=== PATIENT | male | born 1960 | race Caucasian/White ===

== ENCOUNTER 2020-07-15 13:20 | Emergency (ER) | payer OTHER, MEDICAID, SELFPAY ==
[2020-07-15 13:30] VITALS: BP 151/76; PULSE 76; RESP 16; TEMP 36.9; O2SAT 98; BMI 25.0
[2020-07-15 15:23] VITALS: BP 169/78; PULSE 55; TEMP 37.1; O2SAT 95
--- NOTE | 2020-07-15 16:52 | ED.GENADULT ---
HPI - General Adult General Chief complaint: Ear Stated complaint: Ears went nutty after trip to [place] Time Seen by Provider: 07/15/20 16:32 Source: patient Mode of arrival: Ambulatory Limitations: no limitations History of Present Illness HPI narrative: Patient is a 60-year-old male who stated that he spent a period of time upon [facility] and as he was coming down had fullness in pain and both of his ears with right being greater than left. He also describes nasal congestion. Has not tried anything for his symptoms prior to arrival. Related Data Allergies Allergy/AdvReac Type Severity Reaction Status Date / Time blueberries Allergy Severe Uncoded 05/30/17 11:53 Review of Systems Constitutional Constitutional: Denies headache(s) ENT Ears, Nose, Mouth, and Throat: Denies headache(s) Comments: Bilateral ear pain Integumentary/Breasts Skin/Breast: Denies rash Neurologic Neurologic: Denies headache(s) Hematologic/Lymphatic On Anticoagulants: No Allergic/Immunologic Allergic/Immunologic: Reports system reviewed and no additional complaints, except as documented Patient History alcohol intake frequency: 0-2 drinks per day Substance Use Type: marijuana Exam Initial Vital Signs Initial Vital Signs: Vital Signs Temperature 98.5 F 07/15/20 13:30 Pulse Rate 76 07/15/20 13:30 Respiratory Rate 16 07/15/20 13:30 Blood Pressure 151/76 H 07/15/20 13:30 Pulse Oximetry 98 07/15/20 13:30 Const General: cooperative and comfortable Limitations: mental status not altered HENOH Head: normal to inspection and normocephalic Ears: other (Bilateral EACs impacted by cerumen) Nose: external nose normal Mouth: oral mucosae normal Eyes General: appearance normal, both eyes and all related structures Skin Lesions: no lesions Rashes: no rashes Neuro General: patient alert and patient awake Extrem General: capillary refill normal Psych Appearance: grossly normal and well kempt Course Vital Signs Vital signs: Vital Signs - 8 hr 07/15/20 15:23 Temperature 98.8 F Pulse Rate 55 L Blood Pressure 169/78 H Pulse Oximetry 95 Medical Decision Making MDM Narrative Medical decision making narrative: Patient's bilateral tympanic membranes are obscured by cerumen impaction. There to far posterior for a safe removal here in the emergency department. His symptoms started after he was descending for mouth to 2. I suspect it is Ear block related to out to change fever did discuss the use of decongestants. Patient is safe for discharge home. He was given return precautions. Expressed understanding agreement. Discharge Plan Departure Patient Disposition: Home Clinical Impression: Blocked ear, Bilateral impacted cerumen Instructions: Cerumen Impaction Activity Restrictions/Additional Instructions: I recommend that you start taking decongestants such as Afrin. This medication is probably the fastest way to open your ears. You can also start taking a antihistamine such as Claritin or Benadryl. All of these can be purchased [id number]. If this is not working you then can try Nasonex or Flonase. Contact your primary provider for follow-up. Return to the emergency department for any new or worsening symptoms Referrals: Ree Starr PA-C [Primary Care Provider] -
== END 2020-07-15 17:04 | disposition home or self-care (01) ==
PROVIDERS: Emergency Provider Emergency Medicine; PCP Physician Assistant Medical
DX: H61.23 Impacted cerumen, bilateral (principal)
CPT/HCPCS: 99281

== ENCOUNTER 2021-06-24 13:29 | Emergency (ER) | payer OTHER, MEDICAID, SELFPAY ==
[2021-06-24 14:14] VITALS: BP 145/94; PULSE 99; RESP 18; TEMP 36.8; O2SAT 97; BMI 24.3
--- NOTE | 2021-06-24 15:59 | ED_ITS ---
HPI - Skin/Abscess/Foreign Bdy <Girish Husain PA-C - Last Filed: 06/24/21 16:13> General Chief complaint: Skin/Abscess/Foreign Body Stated complaint: skin rash, all over but started from rash on back Time Seen by Provider: 06/24/21 15:41 History of Present Illness HPI narrative: This is a 61-year-old male presents to emergency department due to a rash for the month. States that it initially began to the left which spread his lesions to and top of the head over last 2 days. Denies any visual changes, tearing of his eye, or any other eye symptoms. States that he felt a burning sensation to his forehead prior to the lesions appearing. States that over the last month he has been given at oral course of prednisone and Keflex which have minimally helped relieve the itchiness. States he received office childhood immunizations but does not recall if he had chickenpox as a child. Did not has received the shingles vaccine. Denies any fevers, chest pain, or any other concerning signs or symptoms. Related Data Previous Rx's Medication Instructions Recorded valacyclovir 1 gram tablet 1,000 mg PO TID 7 Days #21 tab 06/24/21 valacyclovir 1 gram tablet 1,000 mg PO TID 7 Days #21 tab 06/24/21 Allergies Allergy/AdvReac Type Severity Reaction Status Date / Time blueberries Allergy Severe Uncoded 05/30/17 11:53 Review of Systems <ALVERTO Angulo Last Filed: 06/24/21 16:13> Review of Systems Narrative: See HPI Patient History <ALVERTO Angulo Last Filed: 06/24/21 16:13> alcohol intake frequency: 0-2 drinks per day Substance Use Type: marijuana Exam <ALVERTO Angulo Last Filed: 06/24/21 16:13> Narrative Exam Narrative: GENERAL: 61 year old patient appears stated age. Well-developed patient, in mild distress. HEAD: Atraumatic. Normocephalic. EYES: Pupils equal round and reactive. Extraocular motions intact. No scleral icterus. No injection or drainage. ENT: Nose without bleeding, purulent drainage. Throat without erythema, tonsillar hypertrophy or exudate. Airway patent. NECK: Trachea midline. Non tender CARDIOVASCULAR: Regular rate and rhythm without murmurs, gallops, or rubs. RESPIRATORY: Clear to auscultation. Breath sounds equal bilaterally. No wheezes, rales, or rhonchi. GASTROINTESTINAL: Abdomen soft, non-tender, nondistended. EXTREMITIES: No edema or joint tenderness. BACK: Nontender without deformity or crepitance. No flank tenderness. NEURO: AOx3. SKIN: Erythematous and scaling rash to the bilateral upper back. Not significantly warm to the touch. Lesions to the left forehead and upper eyelid that do not cross the midline along with a lesion to the left eyelid. No evidence of any lesions to the conjunctiva or eye itself. Initial Vital Signs Initial Vital Signs: Vital Signs Temperature 98.3 F 06/24/21 14:14 Pulse Rate 99 H 06/24/21 14:14 Respiratory Rate 18 06/24/21 14:14 Blood Pressure 145/94 H 06/24/21 14:14 Pulse Oximetry 97 06/24/21 14:14 <Gabriel Valle DO - Last Filed: 06/26/21 07:54> Initial Vital Signs Initial Vital Signs: Vital Signs Temperature 98.3 F 06/24/21 14:14 Pulse Rate 99 H 06/24/21 14:14 Respiratory Rate 18 06/24/21 14:14 Blood Pressure 145/94 H 06/24/21 14:14 Pulse Oximetry 97 06/24/21 14:14 Course <Girish Husain PA-C - Last Filed: 06/24/21 16:13> Vital Signs Vital signs: Vital Signs - 8 hr 06/24/21 14:14 Temperature 98.3 F Pulse Rate 99 H Respiratory Rate 18 Blood Pressure 145/94 H Pulse Oximetry 97 <DO Adeel Beck Last Filed: 06/26/21 07:54> Vital Signs Vital signs: Vital Signs - 8 hr 06/24/21 14:14 Temperature 98.3 F Pulse Rate 99 H Respiratory Rate 18 Blood Pressure 145/94 H Pulse Oximetry 97 MDM - Skin/Abscess/Foreign Bdy <ALVERTO Angulo Last Filed: 06/24/21 16:13> MDM Narrative Medical decision making narrative: This is is a 61-year-old male presenting to the emergency department due to rash, possible shingles. Patient has already been treated for bacterial and allergic etiology with the prednisone and Keflex previously prescribed. E xamined the patient w/ my attending physician, Dr. Valle, who agreed with plan for antivirals to treat for possible shinges. Patient denied any ocular symptoms but ED precautions given emergency department if he notes any lesions affecting his eye. Discharge Plan Departure Patient Disposition: Home Clinical Impression: Shingles Instructions: DI for Shingles Activity Restrictions/Additional Instructions: Thank you for coming to the [facility] Emergency Department. We will treat you for suspected shingles infection. Please take the antiviral as prescribed to help with your symptoms. You may use Benadryl as needed to help with the itchiness as well as the creams have been prescribed. Please return directly to the emergency department if he develops any visual changes or lesions affecting your eye ball itself. I hope you feel better soon. Prescriptions: New valacyclovir 1 gram tablet 1,000 mg PO TID 7 Days Qty: 21 0RF valacyclovir 1 gram tablet 1,000 mg PO TID 7 Days Qty: 21 0RF Referrals: Burt Bay MD [Primary Care Provider] - <Gabriel Valle DO - Last Filed: 06/26/21 07:54> Cosign ED Attending Cosignature Attestation: I was immediately available in the department for consultation. This documentation has been reviewed and I agree with assessment and plan. Supervised by Gabriel Valle DO
[2021-06-24 16:23] VITALS: BP 154/92; PULSE 85; RESP 16; O2SAT 96
== END 2021-06-24 16:24 | disposition home or self-care (01) ==
PROVIDERS: Emergency Provider Physician Assistant Medical; PCP Internal Medicine
DX: B02.9 Zoster without complications (principal)
CPT/HCPCS: 99281

== ENCOUNTER → 2021-09-30 09:19 | Outpatient (CLI) | payer OTHER, SELFPAY ==
--- NOTE | 2021-09-30 09:24 | DI.RAD.S_ITS ---
PROCEDURE: XR KNEE RT 1TO2V INDICATIONS: BILATERAL KNEE PAIN TECHNIQUE: Two view(s) of the knee acquired. COMPARISON: [facility], , KNEE 3V RIGHT, 08/31/2016, 15:15. FINDINGS: Bones: Status post right knee arthroplasty with components in expected position. No significant periprosthetic lucency. No acute fractures. Soft tissues: Trace joint effusion. Small periarticular dystrophic calcifications, possibly related to postsurgical changes. IMPRESSION: 1. Expected appearance post right knee arthroplasty without significant periprosthetic lucency to suggest loosening. Dictated by: Joana Rai M.D. on 09/30/2021 at 12:18 Approved by: Joana Rai M.D. on 09/30/2021 at 12:21
--- NOTE | 2021-09-30 09:24 | DI.RAD.S_ITS ---
PROCEDURE: XR KNEE LT 1TO2V INDICATIONS: BILATERAL KNEE PAIN TECHNIQUE: Two view(s) of the knee acquired. COMPARISON: [facility], , KNEE 3V LEFT, 08/31/2016, 15:15. [facility], , KNEE 3V RIGHT, 08/31/2016, 15:15. FINDINGS: Bones: Patient is status post knee joint arthroplasty. Hardware components are in expected positions. No periprosthetic lucency. Visualized bony structures are intact. Soft tissues: Very small joint effusion. No unusual soft tissue calcifications. IMPRESSION: 1. Expected appearance of the joint post left knee arthroplasty with very small joint effusion present. Dictated by: Joana Rai M.D. on 09/30/2021 at 12:17 Approved by: Joana Rai M.D. on 09/30/2021 at 12:18
== END ==
PROVIDERS: PCP Family Medicine; Referring Provider Internal Medicine Cardiovascular Disease; Visit Provider Internal Medicine Cardiovascular Disease
DX: M25.561 Pain in right knee (principal); M25.562 Pain in left knee; Z96.653 Presence of artificial knee joint, bilateral
CPT/HCPCS: 73560

== ENCOUNTER 2022-01-13 08:39 | Emergency (ER) | payer OTHER, MEDICAID, SELFPAY ==
[2022-01-13 09:12] VITALS: BP 145/69; PULSE 82; RESP 16; TEMP 36.7; O2SAT 95; BMI 23.6
--- NOTE | 2022-01-13 09:19 | DI.US.S_ITS ---
PROCEDURE: US PERIPH VENOUS LOW EXTREM LT INDICATIONS: LLE pain/ swelling TECHNIQUE: Real-time imaging, as well as color and pulse Doppler interrogation, were performed of the lower extremity deep veins from the inguinal ligament to the popliteal fossa. COMPARISON: None. FINDINGS: The common femoral, femoral and popliteal veins are normally compressible, and free of intraluminal thrombus. Color and pulse Doppler demonstrate normal phasic intraluminal flow. There is normal augmentation response to distal compression maneuver. Subcutaneous edema present. IMPRESSION: 1. No DVT in the left lower extremity. Dictated by: Joana Rai M.D. on 01/13/2022 at 11:45 Approved by: Joana Rai M.D. on 01/13/2022 at 11:46
[2022-01-13 09:36] LABS: Add Manual Diff / Slide Review YES; Hematocrit 51.9 % (41-53); Mean Corpuscular HGB Conc 34.8 % (30-36); Mean Corpuscular Hemoglobin 34.4 PG (26-34); Mean Corpuscular Volume 99.1 fL (80-100); Platelet Count 83 X10^3/uL (150-400); Red Blood Cell Count 5.24 X10^6/uL (4.5-5.9); Red Cell Distribution Width 13.2 % (11.6-14.8); White Blood Cell Count 6.1 X10^3/uL (4.5-11.0)
[2022-01-13 09:44] LABS: Alanine Aminotransferase 43 IU/L (<50); Albumin 3.6 g/dL (3.5-5.0); Albumin Globulin Ratio 1.1 (1.0-2.8); Alkaline Phosphatase 98 U/L (38-126); Aspartate Aminotransferase 65 IU/L (17-59); BUN Creatinine Ratio 5.1 (6-22); Bilirubin Total 0.5 mg/dL (0.2-1.3); Blood Urea Nitrogen 3 mg/dL (9-20); Calcium 8.5 mg/dL (8.4-10.2); Carbon Dioxide 22 mmol/L (22-32); Chloride 104 mmol/L (98-107); Estimated Glomerular Filt Rate > 60 mL/min (>60); Globulin 3.2 g/dL (1.7-4.1); Glucose 95 mg/dL (70-100); HEMOLYSIS 15 (0-50); Potassium 3.8 mmol/L (3.4-5.1); Sodium 137 mmol/L (137-145); Total Protein 6.8 g/dL (6.3-8.2)
[2022-01-13 10:06] LABS: Neutrophils Absolute Manual 4087 /uL (3000-5900); RBC Morphology Normal Morphology; Total Cells Counted 100
--- NOTE | 2022-01-13 12:10 | ED_ITS ---
HPI - Extremity Problem General Chief complaint: Extremity Problem,Nontraumatic Stated complaint: LT leg is swelling t-4 Time Seen by Provider: 01/13/22 11:52 Source: patient Mode of arrival: Ambulatory History of Present Illness HPI Narrative: 61-year-old male who is here for evaluation of swelling and redness to his left lower extremity. No trauma. No chest pain. No shortness of breath. No fevers. He states that he has recently been treated for athlete's foot. He also states he has something on the bottom of his foot. Family was concerned that maybe this was a skin infection. Related Data Previous Rx's Medication Instructions Recorded carbamide peroxide 6.5 % ear drops 3 drp EAR-RIGHT BID #15 mL 01/13/22 (Ear Wax Removal Drops) Allergies Allergy/AdvReac Type Severity Reaction Status Date / Time blueberries Allergy Severe Uncoded 05/30/17 11:53 Review of Systems Constitutional Constitutional: Reports system reviewed and no additional complaints, except as documented Musculoskeletal Musculoskeletal: Reports system reviewed and no additional complaints, except as documented Integumentary/Breasts Skin/Breast: Reports system reviewed and no additional complaints, except as documented Neurologic Neurologic: Reports system reviewed and no additional complaints, except as documented Hematologic/Lymphatic On Anticoagulants: No Patient History Social History Smoking Status: Current every day smoker Smoking Status: Current every day smoker alcohol intake frequency: 0-2 drinks per day Substance Use Type: marijuana Exam Initial Vital Signs Initial Vital Signs: Vital Signs Temperature 98.0 F 01/13/22 09:12 Pulse Rate 82 01/13/22 09:12 Respiratory Rate 16 01/13/22 09:12 Blood Pressure 145/69 H 01/13/22 09:12 Pulse Oximetry 95 01/13/22 09:12 Oxygen Delivery Method 01/13/22 09:12 HENLA Head: normal to inspection and normocephalic Cardio Pulses: dorsalis pedis present on the left Skin Other: Patient with petechiae on the dorsum of his left foot and also petechiae and purpura on his left loving. He does have a plantar wart on the bottom of his foot. Extrem Other: Nonpitting edema left lower extremity. Course Orders Ordered: ED Orders 01/13/22 09:19 US periph venous low extrem lt Stat 01/13/22 09:23 CMP [Comprehensive Metabolic Panel] Stat Complete Blood Count AUTO DIFF Stat Vital Signs Vital signs: Vital Signs - 8 hr 01/13/22 09:12 Temperature 98.0 F Pulse Rate 82 Respiratory Rate 16 Blood Pressure 145/69 H Pulse Oximetry 95 Oxygen Delivery Method Room Air MDM - Extremity (Nontraumatic) Lab Data Result diagrams: 01/13/22 09:23 01/13/22 09:23 Labs: Lab Results 01/13/22 01/13/22 Range/Units 09:23 09:23 WBC 6.1 (4.5-11.0) X10^3/uL RBC 5.24 (4.5-5.9) X10^6/uL Hgb 18.0 H (13.5-17.5) g/dL Hct 51.9 (41-53) % MCV 99.1 (80-100) fL MCH 34.4 H (26-34) PG MCHC 34.8 (30-36) % RDW 13.2 (11.6-14.8) % Plt Count 83 L (150-400) X10^3/uL Neut % (Auto) Not Reportable Lymph % (Auto) Not Reportable [place] % (Auto) Not Reportable Eos % (Auto) Not Reportable Baso % (Auto) Not Reportable Lymph # (Auto) Not Reportable [place] # (Auto) Not Reportable Baso # (Auto) Not Reportable Total Counted 100 Seg Neutrophils % 66.0 (38-70) % Band Neutrophils % 1.0 L (3-7) % Lymphocytes % (Manual) 28.0 (25-45) % Monocytes % (Manual) 4.0 (2-11) % Eosinophils % (Manual) 1.0 L (2-4) % Neutrophils # (Manual) 4087 (8968-7879) /uL RBC Morphology Normal morphology Sodium 137 (137-145) mmol/L Potassium 3.8 (3.4-5.1) mmol/L Chloride 104 (98-107) mmol/L Carbon Dioxide 22 (22-32) mmol/L BUN 3 L (9-20) mg/dL Creatinine 0.59 L (0.66-1.25) mg/dL Estimated GFR > 60 (>60) mL/min BUN/Creatinine Ratio 5.1 L (6-22) Glucose 95 (70-100) mg/dL Calcium 8.5 (8.4-10.2) mg/dL Total Bilirubin 0.5 (0.2-1.3) mg/dL AST 65 H (17-59) IU/L ALT 43 (<50) IU/L Alkaline Phosphatase 98 (38-126) U/L Total Protein 6.8 (6.3-8.2) g/dL Albumin 3.6 (3.5-5.0) g/dL Globulin 3.2 (1.7-4.1) g/dL Albumin/Globulin Ratio 1.1 (1.0-2.8) Imaging Data US - DVT: Radiologist's Impression: [address] [id number] Ultrasound Report Signed Patient: Wilver Batres MR#: [id number] : 1960 Acct:[id number] Age/Sex: 61 / M Date of Service: 01/13/22 Loc: ED Accession Number: [id number] ?? Procedure: US periph venous low extrem lt Ordering Provider: Kojo Kaiser D.O. PROCEDURE:? US PERIPH VENOUS LOW EXTREM LT ? INDICATIONS:? LLE pain/ swelling ? TECHNIQUE:? Real-time imaging, as well as color and pulse Doppler interrogation, were performed of the lower extremity deep veins from the inguinal ligament to the popliteal fossa.? ? COMPARISON:? None. ? FINDINGS:? The common femoral, femoral and popliteal veins are normally compressible, and free of intraluminal thrombus.? Color and pulse Doppler demonstrate normal phasic intraluminal flow.? There is normal augmentation response to distal compression maneuver. ?Subcutaneous edema present. ? IMPRESSION:? ? 1. No DVT in the left lower extremity.? ? ? Dictated by: Joana Rai M.D. on 01/13/2022 at 11:45 ? ? Approved by: Joana Rai M.D. on 01/13/2022 at 11:46 MDM Narrative Medical decision making narrative: Afebrile. Ultrasounds negative for DVT. He does have petechiae per per on his left lower extremity. He does have thrombocytopenia. He is no other signs of bleeding. No trauma. Kidney function is unremarkable. Did consider ITP/TTP/HUS I did discuss this with the patient. He does have a primary doctor. Informed him that he should contact his primary doctor for follow-up to discuss further workup. Patient does not need admitted to the hospital today. No indication for antibiotics. He expressed understanding and agreement. Discharge Plan Departure Patient Disposition: Home Clinical Impression: Thrombocytopenia, Petechiae, Cerumen impaction Instructions: DI for Cerumen Impaction, DI for Petechiae Activity Restrictions/Additional Instructions: I recommend that you contact your primary doctor's office for follow-up to discuss your low platelet count. Return to the emergency department for any new or worsening symptoms. Prescriptions: New Ear Wax Removal Drops 6.5 % drops 3 drp EAR-RIGHT BID Qty: 15 0RF Referrals: Osmany Frey MD [Primary Care Provider] - Visit Report Forms: Patient Portal/API
== END 2022-01-13 12:26 | disposition home or self-care (01) ==
PROVIDERS: Emergency Provider Emergency Medicine; PCP Family Medicine
DX: D69.6 Thrombocytopenia, unspecified (principal); H61.20 Impacted cerumen, unspecified ear
CPT/HCPCS: 36415; 80053; 85007; 85025; 93971; 99283; 99284

== ENCOUNTER 2023-03-13 19:13 | Emergency (ER) | payer OTHER, MEDICAID, SELFPAY ==
[2023-03-13 19:16] VITALS: BP 116/61; PULSE 84; RESP 18; TEMP 36.4; O2SAT 99; BMI 23.4
--- NOTE | 2023-03-13 19:46 | ED_ITS ---
HPI - Extremity Problem General Chief complaint: Extremity Problem,Nontraumatic Stated complaint: leg swelling Time Seen by Provider: 03/13/23 19:36 Source: patient Mode of arrival: Ambulatory History of Present Illness HPI Narrative: Patient is a 63-year-old male here for evaluation of left lower extremity swelling. He states his symptoms been going on the past couple days. He does feel like both legs are swelling but the left is worse than the right. He does have redness to his upper leg. It does not extend to his scrotum/testicles. No abdominal issues. 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 He reports swelling to both of his knees. No specific trauma. No fevers. Is taking all of his medications as directed. No history of gout. No history of heart failure. He has tried to keep both of his legs elevated without much improvement of symptoms. Related Data Previous Rx's Medication Instructions Recorded carbamide peroxide 6.5 % ear drops 3 drp EAR-RIGHT BID #15 mL 01/13/22 (Ear Wax Removal Drops) cephalexin 500 mg capsule 500 mg PO BID 7 days #14 caps 03/13/23 furosemide 20 mg tablet (Lasix) 20 mg PO DAILY #30 tabs 03/13/23 Allergies Allergy/AdvReac Type Severity Reaction Status Date / Time blueberries Allergy Severe Uncoded 05/30/17 11:53 Review of Systems Review of Systems ROS Unobtainable: All systems reviewed & are unremarkable except as noted in HPI and below Patient History Social History Smoking Status: Current every day smoker Smoking Status: Current every day smoker tobacco type: cigarettes alcohol intake frequency: 0-2 drinks per day Substance Use Type: marijuana Exam Initial Vital Signs Initial Vital Signs: Vital Signs Temperature 97.5 F L 03/13/23 19:16 Pulse Rate 84 03/13/23 19:16 Respiratory Rate 18 03/13/23 19:16 Blood Pressure 116/61 03/13/23 19:16 Pulse Oximetry 99 03/13/23 19:16 Oxygen Delivery Method Room Air 03/13/23 19:16 Const General: cooperative, comfortable and No ill appearing HENMT Head: normal to inspection and normocephalic Resp Effort & Inspection: normal respiratory effort Auscultation: clear to auscultation bilaterally Cardio Rate: regular rate Rhythm: regular rhythm Pulses: dorsalis pedis present bilaterally GI Inspection: normal to inspection and non-distended Palpation: soft, No firm, No guarding and No tender Skin Other: Patient does have redness to the left upper thigh particularly the anterior and medial aspect. No vesicles. No pustules. He also has wounds in various stages of healing in his lower extremities. Neuro General: patient alert, patient awake and patient oriented x3 Extrem Other: Bilateral knees are swollen. Left leg is swollen from just below his knee to his upper thigh. He is able to flex and extend the knee but is somewhat limited because of the swelling in his knees in the ?tightness? that develops when he bends his knee. Course Orders Ordered: ED Orders 03/13/23 19:45 US periph venous low extrem bi Stat 03/13/23 19:55 Complete Blood Count AUTO DIFF Stat Comprehensive Metabolic Panel Stat Lipase Stat NT-proBNP (BNP-Adult 18+) Stat Troponin & CK Cardiac Panel Stat 03/13/23 20:36 EKG-12 Lead Stat Discontinued Medications Furosemide (Furosemide 40 Mg/4 Ml Vial) 40 mg IV NOW ONE Stop: 03/13/23 21:26 Last Admin: 03/13/23 21:34 Dose: 40 mg Documented By: NELLA Vital Signs Vital signs: Vital Signs - 8 hr 03/13/23 19:16 03/13/23 21:47 Temperature 97.5 F L Pulse Rate 84 79 Respiratory Rate 18 20 Blood Pressure 116/61 119/70 Pulse Oximetry 99 97 Oxygen Delivery Method Room Air Room Air MDM - Extremity (Nontraumatic) Lab Data 03/13/23 19:55 03/13/23 19:55 Labs: Lab Results 03/13/23 Range/Units 19:55 WBC 6.7 (4.5-11.0) X10^3/uL RBC 4.07 L (4.5-5.9) X10^6/uL Hgb 14.3 (13.5-17.5) g/dL Hct 41.4 (41-53) % MCV 101.7 H (80-100) fL MCH 35.0 H (26-34) PG MCHC 34.5 (30-36) % RDW 13.5 (11.6-14.8) % Plt Count 74 L (150-400) X10^3/uL Neut % (Auto) Not Reportable Lymph % (Auto) Not Reportable [place] % (Auto) Not Reportable Eos % (Auto) Not Reportable Baso % (Auto) Not Reportable Lymph # (Auto) Not Reportable [place] # (Auto) Not Reportable Baso # (Auto) Not Reportable Total Counted 100 Seg Neutrophils % 57.0 (38-70) % Lymphocytes % (Manual) 33.0 (25-45) % Monocytes % (Manual) 6.0 (2-11) % Eosinophils % (Manual) 3.0 (2-4) % Basophils % (Manual) 1.0 (0-1) % Neutrophils # (Manual) 3819 (6715-0975) /uL RBC Morphology Normal morphology Sodium 127 L (137-145) mmol/L Potassium 3.8 (3.4-5.1) mmol/L Chloride 97 L (98-107) mmol/L Carbon Dioxide 22 (22-32) mmol/L BUN < 2 L (9-20) mg/dL Creatinine 0.45 L (0.66-1.25) mg/dL Estimated GFR > 60 (>60) mL/min BUN/Creatinine Ratio 4.4 L (6-22) Glucose 82 (80-110) mg/dL Calcium 8.0 L (8.4-10.2) mg/dL Total Bilirubin 1.0 (0.2-1.3) mg/dL AST 72 H (17-59) IU/L ALT 28 (<50) IU/L Alkaline Phosphatase 101 (38-126) U/L Total Creatine Kinase 110 (55-170) U/L Troponin I < 0.012 (0.01-0.034) ng/mL NT-Pro-B Natriuret Pep 127 H (<125) pg/mL Total Protein 5.8 L (6.3-8.2) g/dL Albumin 2.6 L (3.5-5.0) g/dL Globulin 3.2 (1.7-4.1) g/dL Albumin/Globulin Ratio 0.8 L (1.0-2.8) Lipase 47 (23-300) U/L Imaging Data US - DVT: Radiologist's Impression: PROCEDURE: US PERIPH VENOUS LOW EXTREM BI INDICATIONS: EDEMA TECHNIQUE: Real-time imaging, as well as color and pulse Doppler interrogation, were performed of the deep veins of both legs from the inguinal ligament to the popliteal fossa, with documentation of the visualized calf veins. COMPARISON: None. FINDINGS: Right: The common femoral, femoral, popliteal, and the visualized calf veins are normally compressible, and free of intraluminal thrombus. Color and pulse Doppler demonstrate normal phasic intravascular flow. There is normal augmentation response to distal compression maneuver. Diffuse soft tissue edema. Left: The common femoral, femoral, popliteal, and the visualized calf veins are normally compressible, and free of intraluminal thrombus. Color and pulse Doppler demonstrate normal phasic intravascular flow. There is normal augmentation response to distal compression maneuver. Diffuse soft tissue edema. IMPRESSION: No findings of deep venous thrombosis in either lower extremity. ECG Data Interpretation: Sinus rhythm Ventricular rate is 75 Artifact noted V1 V2 V3 V4 No [address] T wave changes Normal axis MDM Narrative Medical decision making narrative: Patient is afebrile is not tachycardic and does not have a leukocytosis. He is bilateral with left being greater than right lower extremity edema. He is negative for bilateral DVT on ultrasound. He has no chest pain no shortness of breath. Not clinically in heart failure. BNP is relatively unremarkable. Troponin EKG unremarkable. He does have redness to his left upper thigh however it is not warm to the touch. Given his lack of fever and lack of leukocytosis in the appearance of the redness I have higher suspicion that this is just skin changes because of the swelling in his leg not necessarily a cellulitis. There was no crepitus felt. He has 2+ pedal pulses that are equal bilateral. Capillary refill 2-3 seconds and it is equal bilateral. His kidney function is unremarkable. Multiple potential reasons for his lower extremity edema. Plan will be is to discharge home with Lasix. We discussed keeping his legs elevated. Discussed compression stockings. He was given a dose of Lasix here in the ER and a prescription was sent to the pharmacy of his choice. Although not completely consistent with an infection today it is still a possibility. A prescription for antibiotics was printed and given to the patient. I advised that he hold on filling this. Will have him use the Lasix to see if he gets improvement and see if the redness improves with this. If he starts to develop fevers or the redness gets worse then he can start taking the antibiotics as directed. I did recommend that he follow-up with his primary doctor as he was going to need further workup to include an echocardiogram and potentially even arterial duplex studies of his legs. He was given return precautions. He expressed understanding and agreement. Discharge Plan Departure Patient Disposition: Home Clinical Impression: Peripheral edema Instructions: DI for Peripheral Edema -- Bilateral Activity Restrictions/Additional Instructions: A prescription for a medicine called Lasix/furosemide which has a diuretic was sent to [facility]. Please start taking it daily as directed. You were also given a printed prescription for an antibiotic. Hold on filling this medication for the next 24-48 hours. If the redness in your legs starts to worsen or you develop fevers then start taking this medication as directed. Contact your primary doctor for a follow-up as you are going to need further workup and to discuss the indications for an echocardiogram for potentially even arterial duplex ultrasounds of your lower extremities. Return to the emergency department for new symptoms. Prescriptions: New furosemide [Lasix] 20 mg tablet 20 mg PO DAILY Qty: 30 0RF cephalexin 500 mg capsule 500 mg PO BID 7 Days Qty: 14 0RF No Action Ear Wax Removal Drops 6.5 % drops 3 drp EAR-RIGHT BID Qty: 15 0RF Referrals: Osmany Frey MD [Primary Care Provider] - Stand Alone Forms: Patient Portal/API
[2023-03-13 20:14] LABS: Hematocrit 41.4 % (41-53); Hemoglobin 14.3 g/dL (13.5-17.5); Mean Corpuscular HGB Conc 34.5 % (30-36); Mean Corpuscular Volume 101.7 fL (80-100); Platelet Count 74 X10^3/uL (150-400); Red Blood Cell Count 4.07 X10^6/uL (4.5-5.9); Red Cell Distribution Width 13.5 % (11.6-14.8); White Blood Cell Count 6.7 X10^3/uL (4.5-11.0)
[2023-03-13 20:25] LABS: Alanine Aminotransferase 28 IU/L (<50); Albumin 2.6 g/dL (3.5-5.0); Albumin Globulin Ratio 0.8 (1.0-2.8); Alkaline Phosphatase 101 U/L (38-126); Aspartate Aminotransferase 72 IU/L (17-59); Carbon Dioxide 22 mmol/L (22-32); Chloride 97 mmol/L (98-107); Estimated Glomerular Filt Rate > 60 mL/min (>60); Globulin 3.2 g/dL (1.7-4.1); Glucose 82 mg/dL (80-110); HEMOLYSIS 20 (0-50); Lipase 47 U/L (23-300); Potassium 3.8 mmol/L (3.4-5.1); Sodium 127 mmol/L (137-145); Total Protein 5.8 g/dL (6.3-8.2)
[2023-03-13 20:26] LABS: Add Manual Diff / Slide Review YES
[2023-03-13 20:28] LABS: BUN Creatinine Ratio 4.4 (6-22); Blood Urea Nitrogen < 2 mg/dL (9-20); Neutrophils Absolute Manual 3819 /uL (3000-5900); RBC Morphology Normal Morphology; Total Cells Counted 100
[2023-03-13 20:33] LABS: NT-proBNP (BNP-Adult 18+) 127 pg/mL (<125)
[2023-03-13 20:53] LABS: Creatine Kinase 110 U/L (55-170)
[2023-03-13 21:05] LABS: Troponin I < 0.012 ng/mL (0.01-0.034)
[2023-03-13] MEDS: FUROSEMIDE 40 MG/4 ML VIAL IV (21:34)
[2023-03-13 21:47] VITALS: BP 119/70; PULSE 79; RESP 20; O2SAT 97
== END 2023-03-13 21:48 | disposition home or self-care (01) ==
PROVIDERS: Emergency Provider Emergency Medicine; PCP Family Medicine
DX: R60.0 Localized edema (principal); R07.9 Chest pain, unspecified
CPT/HCPCS: 36415; 80053; 82550; 83690; 83880; 84484; 85007; 85025; 93005; 93970; 96374; 99284; J1940

== ENCOUNTER 2023-04-29 18:05 | Emergency (ER) | payer OTHER, MEDICAID, SELFPAY ==
[2023-04-29 18:06] VITALS: BP 133/79; PULSE 93; RESP 16; TEMP 36.6; O2SAT 100; BMI 23.4
--- NOTE | 2023-04-29 18:27 | DI.US.S_ITS ---
PROCEDURE: US PERIP VENOUS LOW EXTREM LT INDICATIONS: LLE SWELLING TECHNIQUE: Real-time imaging, as well as color and pulse Doppler interrogation, were performed of the lower extremity deep veins from the inguinal ligament to the popliteal fossa, with documentation of the visualized calf veins. COMPARISON: [facility], [facility] VENOUS LOW EXTREM BI, 03/13/2023, 20:10. [facility], PERIP VENOUS LOW EXTREM LT, 01/13/2022, 10:43. FINDINGS: The common femoral, femoral, popliteal, and the visualized calf veins are normally compressible, and free of intraluminal thrombus. Color and pulse Doppler demonstrate normal phasic intraluminal flow. There is normal augmentation response to distal compression maneuver. Left lower extremity subcutaneous edema. IMPRESSION: No findings of lower extremity deep venous thrombosis. Dictated by: Teofilo Perla M.D. on 04/29/2023 at 19:45 Approved by: Teofilo Perla M.D. on 04/29/2023 at 19:47
--- NOTE | 2023-04-29 18:27 | DI.US.S_ITS ---
PROCEDURE: US ARTERIAL DUPLEX LE LT INDICATIONS: LLE SWELLING/DEC PULSES TECHNIQUE: Color and pulse Doppler interrogation was performed of the left lower extremity arterial system, with image documentation. COMPARISON: [facility], , [facility] VENOUS LOW EXTREM LT, 04/29/2023, 19:08. FINDINGS: Common femoral artery: 139 cm/sec, with monophasic flow. Deep femoral artery: 96 cm/sec, with monophasic flow. Proximal superficial femoral artery: 185 cm/sec, with monophasic flow. Mid superficial femoral artery: 129 cm/sec, with monophasic flow. Distal superficial femoral artery: 92 cm/sec, with monophasic flow. Popliteal artery: 52 cm/sec, with monophasic flow. Posterior tibial artery: 50 cm/sec, with monophasic flow. Anterior tibial artery/dorsalis pedis: 51 cm/sec, with monophasic flow. Corado-scale imaging description: Mild plaque is seen. IMPRESSION: Monophasic waveforms in the left lower extremity. This could signify a more proximal stenosis or occlusion. CTA could be considered for further evaluation. Mildly elevated peak systolic velocity in the proximal SFA. Dictated by: Teofilo Perla M.D. on 04/29/2023 at 19:57 Approved by: Teofilo Perla M.D. on 04/29/2023 at 20:02
--- NOTE | 2023-04-29 18:36 | ED_ITS ---
HPI - Extremity Problem General Chief complaint: Extremity Problem,Nontraumatic Stated complaint: leg swelling, open wound behind knee Time Seen by Provider: 04/29/23 18:06 Source: patient and family Mode of arrival: Ambulatory History of Present Illness HPI Narrative: 63-year-old male with history of hypertension, tobacco abuse presents by private vehicle from home for left lower extremity swelling and an open wound behind his left knee. Patient has had ongoing issues with swelling in his legs since February. He was initially given Lasix for swelling, which helped somewhat, but did not resolve the issue. He went to his primary care doctor's office who referred him to vascular surgery. Vascular surgery recommended use of compression stockings for 6 weeks, but patient has not had a follow up appointment since that time. He states that the compression stockings have also not helped his swelling. Has been trying to use CeraVe cream for his skin changes without significant improvement. Today patient was walking inside after taking wood in for his stove when he felt the skin along the back of his knee split. His sister evaluated the wound was concerned that it may become infected. Related Data Previous Rx's Medication Instructions Recorded carbamide peroxide 6.5 % ear drops 3 drp EAR-RIGHT BID #15 mL 01/13/22 (Ear Wax Removal Drops) furosemide 20 mg tablet (Lasix) 20 mg PO DAILY #30 tabs 03/13/23 Allergies Allergy/AdvReac Type Severity Reaction Status Date / Time blueberries Allergy Severe Uncoded 05/30/17 11:53 Review of Systems Review of Systems Narrative: Negative except as noted above Patient History Social History Smoking Status: Current every day smoker Smoking Status: Current every day smoker tobacco type: cigarettes alcohol intake frequency: 0-2 drinks per day Substance Use Type: marijuana Exam Initial Vital Signs Initial Vital Signs: Vital Signs Temperature 97.9 F 04/29/23 18:06 Pulse Rate 93 H 04/29/23 18:06 Respiratory Rate 16 04/29/23 18:06 Blood Pressure 133/79 04/29/23 18:06 Pulse Oximetry 100 04/29/23 18:06 Oxygen Delivery Method Room Air 04/29/23 18:06 Const: Awake, alert, appears older than stated age, debilitated Cardiac: regular rate, regular rhythm RESP: unlabored, clear bilaterally, no wheezing GI: Soft, nontender, nondistended, no rebound, no guarding MSK: 2cm laceration behind L knee. No active bleeding. TP pulses wtih doppler Skin: severe peripheral arterial skin changes bilateral shins. Fibrotic skin from foot to mid thigh LLE Neuro: AO x3, CN II-XII grossly intact, moves all extremities Course Orders Ordered: ED Orders 04/29/23 18:27 US arterial duplex LE LT Stat US periph venous low extrem lt Stat 04/29/23 18:40 CBC Auto Diff [Complete Blood Count AUTO DIFF] Stat CMP [Comprehensive Metabolic Panel] Stat PT [Prothrombin Time INR] Stat Vital Signs Vital signs: Vital Signs - 8 hr 04/29/23 18:06 Temperature 97.9 F Pulse Rate 93 H Respiratory Rate 16 Blood Pressure 133/79 Pulse Oximetry 100 Oxygen Delivery Method Room Air MDM - Extremity (Nontraumatic) Lab Data 04/29/23 18:40 04/29/23 18:40 Labs: Lab Results 04/29/23 Range/Units 18:40 WBC 10.1 (4.5-11.0) X10^3/uL RBC 3.95 L (4.5-5.9) X10^6/uL Hgb 13.9 (13.5-17.5) g/dL Hct 39.8 L (41-53) % MCV 100.7 H (80-100) fL MCH 35.2 H (26-34) PG MCHC 35.0 (30-36) % RDW 13.5 (11.6-14.8) % Plt Count 77 L (150-400) X10^3/uL Neut % (Auto) 80.8 H (50-75) % Lymph % (Auto) 10.7 L (25-40) % [place] % (Auto) 7.8 (3-14) % Eos % (Auto) 0.2 L (2-4) % Baso % (Auto) 0.5 (0-2) % Neut # (Auto) 8200 H (5499-2434) /uL Lymph # (Auto) 1100 (7759-7775) /uL [place] # (Auto) 800 (0-900) /uL Eos # (Auto) 0 (0-450) /uL Baso # (Auto) 0 (0-100) /uL PT 13.7 H (9.4-12.5) SECONDS INR 1.2 (0.9-1.3) Sodium 125 L (137-145) mmol/L Potassium 3.7 (3.4-5.1) mmol/L Chloride 97 L (98-107) mmol/L Carbon Dioxide 24 (22-32) mmol/L BUN 7 L (9-20) mg/dL Creatinine 0.50 L (0.66-1.25) mg/dL Estimated GFR > 60 (>60) mL/min BUN/Creatinine Ratio 14.0 (6-22) Glucose 79 L (80-110) mg/dL Calcium 7.8 L (8.4-10.2) mg/dL Total Bilirubin 1.8 H (0.2-1.3) mg/dL AST 60 H (17-59) IU/L ALT 22 (<50) IU/L Alkaline Phosphatase 113 (38-126) U/L Total Protein 6.4 (6.3-8.2) g/dL Albumin 2.7 L (3.5-5.0) g/dL Globulin 3.7 (1.7-4.1) g/dL Albumin/Globulin Ratio 0.7 L (1.0-2.8) Imaging Data US - DVT: Radiologist's Impression: PROCEDURE: US ARTERIAL DUPLEX LE LT INDICATIONS: LLE SWELLING/DEC PULSES TECHNIQUE: Color and pulse Doppler interrogation was performed of the left lower extremity arterial system, with image documentation. COMPARISON: Located [facility], [place], [place] [facility] VENOUS LOW EXTREM LT, 04/29/2023, 19:08. FINDINGS: Common femoral artery: 139 cm/sec, with monophasic flow. Deep femoral artery: 96 cm/sec, with monophasic flow. Proximal superficial femoral artery: 185 cm/sec, with monophasic flow. Mid superficial femoral artery: 129 cm/sec, with monophasic flow. Distal superficial femoral artery: 92 cm/sec, with monophasic flow. Popliteal artery: 52 cm/sec, with monophasic flow. Posterior tibial artery: 50 cm/sec, with monophasic flow. Anterior tibial artery/dorsalis pedis: 51 cm/sec, with monophasic flow. Corado-scale imaging description: Mild plaque is seen. IMPRESSION: Monophasic waveforms in the left lower extremity. This could signify a more proximal stenosis or occlusion. CTA could be considered for further evaluation. Mildly elevated peak systolic velocity in the proximal SFA. Dictated by: Teofilo Perla M.D. on 04/29/2023 at 19:57 Approved by: Teofilo Perla M.D. on 04/29/2023 at 20:02 PROCEDURE: US PERIP VENOUS LOW EXTREM LT INDICATIONS: LLE SWELLING TECHNIQUE: Real-time imaging, as well as color and pulse Doppler interrogation, were performed of the lower extremity deep veins from the inguinal ligament to the popliteal fossa, with documentation of the visualized calf veins. COMPARISON: [facility], [facility] VENOUS LOW EXTREM BI, 03/13/2023, 20:10. [facility], PERIP VENOUS LOW EXTREM LT, 01/13/2022, 10:43. FINDINGS: The common femoral, femoral, popliteal, and the visualized calf veins are normally compressible, and free of intraluminal thrombus. Color and pulse Doppler demonstrate normal phasic intraluminal flow. There is normal augmentation response to distal compression maneuver. Left lower extremity subcutaneous edema. IMPRESSION: No findings of lower extremity deep venous thrombosis. Dictated by: Teofilo Perla M.D. on 04/29/2023 at 19:45 Approved by: Teofilo Perla M.D. on 04/29/2023 at 19:47 MDM Narrative Medical decision making narrative: Spontaneous skin tear in patient with severe peripheral arterial and vascular skin disease changes in his bilateral lower extremities, left worse than right. Skin split secondary to fibrosis and severe dryness. Sister at bedside is concerned that patient may have a blood clot or infection. I have very low suspicion for infection due to the chronic nature of the patient's swelling, will order blood work, repeat DVT scan, as well as arterial scans. Laboratory work reviewed, no leukocytosis. Sodium 125, when patient was in the hospital 2 months prior sodium 127, no significant change. T bili 1.8, AST 60, ALT 22, alk-phos 113. Patient appears to have chronic elevation in liver enzymes dating back to 2021. Ultrasound shows no DVT, however he does have significant peripheral vascular disease as suspected. Patient has dopplerable TP pulses, skin is warm, he was intact and equal sensation and no signs or symptoms of claudication on history or physical exam. Patient counseled on all lab and imaging findings. He was counseled to finish the antibiotics his primary care doctor prescribed to him, however a large part of the patient's symptoms are likely caused by his peripheral disease. Patient was strongly advised to stop smoking and to start taking a daily baby aspirin to prevent worsening progression of disease. He was strongly advised to follow up again with vascular surgery to help with his severe peripheral disease. Patient is dry skin was covered in thick cream and wrapped in bandages. In addition an outpatient wound care referral was sent to help patient manage his skin condition. With the firmness of the skin as well as the location of the skin tear on the back of his knee I do not feel that stitches would be of any benefit as they would rip through the skin and not provide any closure. Patient and sister expressed understanding of the plan and are in agreement at this time. All questions answered at the time of discharge. Discharge Plan Departure Patient Disposition: Home Clinical Impression: Peripheral vascular disease, Skin tear Instructions: DI for Peripheral Vascular (Arterial) Disease Activity Restrictions/Additional Instructions: Your ultrasound did not show any blood clot. It does indicate that you have significant disease burden in your arteries, which is worsening your lower extremity swelling and skin changes. It was extremely important that you stop smoking and follow up with the vascular office. Take a daily baby aspirin to help prevent your artery disease from getting worse. Prescriptions: No Action Ear Wax Removal Drops 6.5 % drops 3 drp EAR-RIGHT BID Qty: 15 0RF furosemide [Lasix] 20 mg tablet 20 mg PO DAILY Qty: 30 0RF Referrals: Osmany Frey MD [Primary Care Provider] - Stand Alone Forms: Patient Portal/API
[2023-04-29 18:57] LABS: INR 1.2 (0.9-1.3); Prothrombin Time 13.7 SECONDS (9.4-12.5)
[2023-04-29 19:00] LABS: Add Manual Diff / Slide Review NO; Basophils Absolute Auto 0 /uL (0-100); Basophils Percent Auto 0.5 % (0-2); Eosinophils Absolute Auto 0 /uL (0-450); Eosinophils Percent Auto 0.2 % (2-4); Hematocrit 39.8 % (41-53); Hemoglobin 13.9 g/dL (13.5-17.5); Lymphocytes Absolute Auto 1100 /uL (1100-4500); Lymphocytes Percent Auto 10.7 % (25-40); Mean Corpuscular Hemoglobin 35.2 PG (26-34); Mean Corpuscular Volume 100.7 fL (80-100); Monocytes Absolute Auto 800 /uL (0-900); Monocytes Percent Auto 7.8 % (3-14); Neutrophils Absolute Auto 8200 /uL (1500-7000); Neutrophils Percent Auto 80.8 % (50-75); Platelet Count 77 X10^3/uL (150-400); Red Blood Cell Count 3.95 X10^6/uL (4.5-5.9); Red Cell Distribution Width 13.5 % (11.6-14.8); White Blood Cell Count 10.1 X10^3/uL (4.5-11.0)
[2023-04-29 19:01] LABS: Alanine Aminotransferase 22 IU/L (<50); Albumin 2.7 g/dL (3.5-5.0); Albumin Globulin Ratio 0.7 (1.0-2.8); Alkaline Phosphatase 113 U/L (38-126); Aspartate Aminotransferase 60 IU/L (17-59); Bilirubin Total 1.8 mg/dL (0.2-1.3); Blood Urea Nitrogen 7 mg/dL (9-20); Calcium 7.8 mg/dL (8.4-10.2); Carbon Dioxide 24 mmol/L (22-32); Chloride 97 mmol/L (98-107); Estimated Glomerular Filt Rate > 60 mL/min (>60); Globulin 3.7 g/dL (1.7-4.1); Glucose 79 mg/dL (80-110); HEMOLYSIS 33 (0-50); Potassium 3.7 mmol/L (3.4-5.1); Sodium 125 mmol/L (137-145); Total Protein 6.4 g/dL (6.3-8.2)
[2023-04-29 20:55] VITALS: BP 120/67; PULSE 90; RESP 20; O2SAT 96
== END 2023-04-29 20:55 | disposition home or self-care (01) ==
PROVIDERS: Emergency Provider Emergency Medicine; PCP Family Medicine
DX: I73.9 Peripheral vascular disease, unspecified (principal); S81.812A Laceration without foreign body, left lower leg, initial encounter; X58.XXXA Exposure to other specified factors, initial encounter
CPT/HCPCS: 36415; 80053; 85025; 85610; 93926; 93971; 99283

== ENCOUNTER 2024-11-06 11:55 | Emergency (ER) | payer MEDICARE, SELFPAY ==
[2024-11-06 12:11] VITALS: BP 149/83; PULSE 79; RESP 16; TEMP 36.3; O2SAT 97; BMI 24.3
--- NOTE | 2024-11-06 12:22 | DI.US.S_ITS ---
PROCEDURE: US PERIPH VENOUS UP EXTREM RT INDICATIONS: swelling hand to elbow; concern clot TECHNIQUE: Real-time imaging, as well as color and pulse Doppler interrogation, was performed of the upper extremity deep veins from the inferior neck to the antecubital fossa. COMPARISON: None. FINDINGS: The internal jugular vein, visualized portions of the subclavian vein, axillary, and brachial veins are free of intraluminal thrombus. Where physically possible, the veins are normally compressible. Color and pulse Doppler demonstrate normal intraluminal flow, with expected phasicity and pulsatility. Additional scanning of the cephalic and basilic veins of the superficial system demonstrates possible nonocclusive thrombus in the right basilic vein. IMPRESSION: 1. No right upper extremity deep venous thrombosis. 2. Nonocclusive possible thrombus in the right basilic vein, concerning for a superficial venous thrombosis. Dictated by: Raúl Driscoll M.D. on 11/06/2024 at 13:24 Approved by: Raúl Driscoll M.D. on 11/06/2024 at 13:26
--- NOTE | 2024-11-06 12:25 | ED_ITS ---
HPI - Extremity Problem General Chief complaint: Extremity Problem,Nontraumatic Stated complaint: Bite or Infection on rt hand Time Seen by Provider: 11/06/24 12:12 Source: patient Mode of arrival: Family Vehicle History of Present Illness HPI Narrative: Mr. Batres is a very pleasant 64-year-old male with a past medical history of hypertension, tobacco use, peripheral vascular disease, peripheral edema, not currently taking any medications who presents to the emergency department for right arm swelling x6 days. Patient states he had a small scab in his right elbow about 6 days ago and the next morning when he woke up the right arm from the elbow down became swollen and discolored on the dorsal forearm. He thought maybe something bit him. Symptoms have persisted for the last 6 days who comes to the ER for further evaluation. Reports that he feels completely normal otherwise and denies any pain, fevers, chest pain, shortness of breath, abdominal pain, nausea, vomiting, diarrhea, numbness tingling or weakness of the hand. He has red/darkened skin along the entire dorsal forearm and pitting edema of the hand. Reports that when he gets small scratches or scabs that he picks off on the arm, it does drain clear/yellow fluid. Denies any medication allergies, was told to take Lasix and aspirin but is not take this because he does not like taking pills. PCP is in [place]. Recently quit smoking cigarettes, drinks beer socially very rarely. Related Data Previous Rx's ?Medication ?Instructions ?Recorded carbamide peroxide 6.5 % ear drops 3 drp EAR-RIGHT BID #15 mL 01/13/22 (Ear Wax Removal Drops) furosemide 20 mg tablet (Lasix) 20 mg PO DAILY #30 tab s 03/13/23 cephalexin 500 mg capsule 500 mg PO QID 7 days #28 cap s 11/06/24 Allergies Allergy/AdvReac Type Severity Reaction Status Date / Time blueberry Allergy Verified 11/06/24 12:20 Review of Systems Review of Systems ROS Unobtainable: All systems reviewed & are unremarkable except as noted in HPI and below Patient History tobacco type: cigarettes alcohol intake frequency: 0-2 drinks per day Exam Narrative Exam Narrative: GENERAL: 64 year old patient appears stated age. Well-developed patient, in no acute distress. HEAD: Atraumatic. Normocephalic. EYES: No scleral icterus. No injection or drainage. NECK: Trachea midline. Cervical ROM intact. CARDIOVASCULAR: Regular rate and rhythm. RESPIRATORY: ?Nonlabored respirations. ?Speaking in clear, full sentences. ?No wheezing, some mild rhonchi throughout. EXTREMITIES: Right upper extremity with edmea of the hand extending proximally to the elbow. 2+ pitting edema on the dorsal aspect of the hand. Erythema and increased warmth of the dorsal forearm, with non blanchable darkened erythematous/purple skin on the dorsal forearm, normal skin color on the palmar forearm. No extension of erythema past the elbow. No pain with flexion- extension of the right wrist or the right elbow, patient is able to move all fingers appropriately, brisk capillary refill on all 10 fingers and 2+ bilateral radial pulses. Sensation intact to light touch in the distribution of median, ulnar, radial nerves. NEURO: AOx3. ?Clear speech. ?Moves all 4 extremities appropriately. SKIN: Erythema darkened discoloration of the dorsal right forearm described above. Initial Vital Signs Initial Vital Signs: Vital Signs Temperature 97.4 F L 11/06/24 12:11 Pulse Rate 79 11/06/24 12:11 Respiratory Rate 16 11/06/24 12:11 Blood Pressure 149/83 H 11/06/24 12:11 Pulse Oximetry 97 11/06/24 12:11 Oxygen Delivery Method Room Air 11/06/24 12:11 Course Orders Ordered: ED Orders 11/06/24 12:22 periph venous up extrem rt Stat CBC Auto Diff [Complete Blood Count AUTO DIFF] Stat CMP [Comprehensive Metabolic Panel] Stat CRP [C-Reactive Protein Quant] Stat Lactate (Lactic Acid) Stat PT [Prothrombin Time INR] Stat PTT Partial Thromboplastin Cornel Stat 11/06/24 13:20 XR forearm RT 2V Stat XR hand RT min 3V Stat Vital Signs Vital signs: Vital Signs - 8 hr 11/06/24 12:11 Temperature 97.4 F L Pulse Rate 79 Respiratory Rate 16 Blood Pressure 149/83 H Pulse Oximetry 97 Oxygen Delivery Method Room Air MDM - Extremity (Nontraumatic) Medical Records Attestation: I reviewed the patient's medical records. Lab Data 11/06/24 12:42 11/06/24 12:42 Labs: Lab Results 11/06/24 Range/Units 12:42 WBC 6.6 (4.5-11.0) X10^3/uL RBC 4.60 (4.5-5.9) X10^6/uL Hgb 16.2 (13.5-17.5) g/dL Hct 46.4 (41-53) % MCV 101.0 H (80-100) fL MCH 35.3 H (26-34) PG MCHC 35.0 (30-36) % RDW 12.9 (11.6-14.8) % Plt Count 81 L (150-400) X10^3/uL Neut % (Auto) 76.0 H (50-75) % Lymph % (Auto) 14.6 L (25-40) % Stokes % (Auto) 6.7 (3-14) % Eos % (Auto) 1.1 L (2-4) % Baso % (Auto) 1.6 (0-2) % Neut # (Auto) 5000 (4417-7599) /uL Lymph # (Auto) 1000 L (9465-0412) /uL Stokes # (Auto) 400 (0-900) /uL Eos # (Auto) 100 (0-450) /uL Baso # (Auto) 100 (0-100) /uL PT 11.6 (9.4-12.5) SECONDS INR 1.0 (0.9-1.3) APTT 29 (25.1-36.5) SECONDS Sodium 129 L (137-145) mmol/L Potassium 4.5 (3.4-5.1) mmol/L Chloride 95 L (98-107) mmol/L Carbon Dioxide 22 (22-32) mmol/L BUN 4 L (9-20) mg/dL Creatinine 0.49 L (0.66-1.25) mg/dL Estimated GFR > 60 (>60) mL/min BUN/Creatinine Ratio 8.2 (6-22) Glucose 62 L (70-99) mg/dL Lactate 1.8 (0.7-2.1) mmol/L Calcium 8.8 (8.4-10.2) mg/dL Total Bilirubin 1.5 H (0.2-1.3) mg/dL AST 96 H (17-59) IU/L ALT 34 (<50) IU/L Alkaline Phosphatase 67 (38-126) U/L C-Reactive Protein 0.7 (<1.0) mg/dL Total Protein 7.4 (6.3-8.2) g/dL Albumin 3.9 (3.5-5.0) g/dL Globulin 3.5 (1.7-4.1) g/dL Albumin/Globulin Ratio 1.1 (1.0-2.8) Imaging Data RUE Venous US: Radiologist's Impression: PROCEDURE: US PERIPH VENOUS UP EXTREM RT INDICATIONS: swelling hand to elbow; concern clot TECHNIQUE: Real-time imaging, as well as color and pulse Doppler interrogation, was performed of the upper extremity deep veins from the inferior neck to the antecubital fossa. COMPARISON: None. FINDINGS: The internal jugular vein, visualized portions of the subclavian vein, axillary, and brachial veins are free of intraluminal thrombus. Where physically possible, the veins are normally compressible. Color and pulse Doppler demonstrate normal intraluminal flow, with expected phasicity and pulsatility. Additional scanning of the cephalic and basilic veins of the superficial system demonstrates possible nonocclusive thrombus in the right basilic vein. IMPRESSION: 1. No right upper extremity deep venous thrombosis. 2. Nonocclusive possible thrombus in the right basilic vein, concerning for a superficial venous thrombosis. Dictated by: Raúl Driscoll M.D. on 11/06/2024 at 13:24 Approved by: Raúl Driscoll M.D. on 11/06/2024 at 13:26 Forearm XR: Radiologist's Impression: PROCEDURE: XR FOREARM RT 2V INDICATIONS: R hand through elbow infection, swelling TECHNIQUE: 2 views of the forearm were acquired. COMPARISON: None. FINDINGS: Bones: No fractures or dislocations. No suspicious bony lesions. 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 Soft tissues: Soft tissue swelling of the right forearm without radiopaque retained foreign body or gas foci. IMPRESSION: Soft tissue edema of the forearm without radiographic osteomyelitis. High-stage SLAC wrist. Dictated by: Raúl Driscoll M.D. on 11/06/2024 at 14:30 Approved by: Raúl Driscoll M.D. on 11/06/2024 at 14:31 R Hand XR: Radiologist's Impression: PROCEDURE: XR HAND RT MIN 3V INDICATIONS: R hand through elbow infection, swelling TECHNIQUE: 3 views of the hand(s) acquired. COMPARISON: None. FINDINGS: Bones: No fractures or dislocations. 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 Soft tissues: No suspicious soft tissue calcifications. Soft tissue swelling of the right hand without radiopaque retained foreign body or gas foci. IMPRESSION: No radiographic osteomyelitis. Dictated by: Raúl Driscoll M.D. on 11/06/2024 at 14:31 Approved by: Raúl Driscoll M.D. on 11/06/2024 at 14:32 [facility] Narrative Medical decision making narrative: 64-year-old male with a past medical history of hypertension, tobacco use, peripheral vascular disease, peripheral edema, not currently taking any medications who presents to the emergency department for right arm swelling x6 days. Differential diagnosis includes but is not limited to right upper extremity cellulitis, infected wound, DVT, etc. On exam the patient is in no acute distress, nontoxic appearing, vital signs appropriate. His right arm from the hand through elbow is edematous with darkened and erythematous skin on the dorsal aspect that is warm. There are few small scabs on the arm. Arm is neurovascularly intact with 2+ radial pulse bilaterally, brisk cap refill, full range of motion and normal sensation. Patient does have a history of peripheral vascular disease, does not take aspirin as recommended. We will obtain CBC, CMP, lactate, CRP for further evaluation of infection, we will also obtain venous ultrasound for possible DVT. Labs reviewed and discussed with the attending, Dr. 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 Today patient has normal WBC count 6.6, hemoglobin 16.2, hematocrit 46.4. Platelets are decreased at 81, this is baseline for patient over last few years. Normal coags. Chronic hyponatremia 129, normal potassium 4.5, chloride 95, BUN 4 creatinine 0.49. Glucose is low at 62, patient has not eaten since last night was provided with orange juice. Total bilirubin is slightly elevated at 1.5, down from prior. AST is elevated 96. Will add on XR hand, forearm. After discussing abnormal labs with the patient, he states that he does not know what his diagnosis is but he has been to a medical assistant cardiology 2 or 3 times this year and they told him he was ?good to go?. X-ray and ultrasound resulted and final disposition plan discussed with the attending Dr. Rodriguez. Ultrasound reveals nonocclusive possible thrombus in the right basilic vein concerning for a superficial venous thrombosis, there is no right upper extremity deep venous thrombosis. Forearm and hand x-ray reveals soft tissue edema of the forearm without radiographic osteomyelitis, he does have high state SLAC wrist which I discussed with him. All imaging results printed and provided to the patient, we discussed acute and incidental findings. At this time suspect cellulitis of the right arm with swelling possibly being contributed by the possible superficial thrombus, given his history of thrombocytopenia, we will avoid NSAIDs for supportive care but will recommend warm therapy and compression. Robbin wrap was applied to the arm. We will treat cellulitis with cephalexin q.i.d. x7 days. Advised repeat right upper extremity venous ultrasound in 1 week for further clot evaluation. Advised patient follow up promptly with his PCP for further discussion of his chronic abnormal labs. Discussed strict ER return precautions. Patient verbalized understanding of all information and is happy with this plan. He is ambulatory and stable for discharge home. Discharge Plan Departure Patient Disposition: Home Clinical Impression: Cellulitis of right upper extremity, Thrombocytopenia Superficial venous thrombosis of arm Qualifiers: Laterality: right Qualified Code(s): I82.611 - Acute embolism and thrombosis of superficial veins of right upper extremity Instructions: DI for Cellulitis -- Adult Activity Restrictions/Additional Instructions: Dear Gisel, Thank you for coming to the emergency department. Today you were evaluated for right arm discoloration and swelling. You had lab work, x-ray and ultrasound performed. Your x-ray did reveal chronic arthritis which we discussed. Your ultrasound revealed a possible superficial clot in the basilic vein. It is extremely important to have a repeat ultrasound in 1 week as we discussed. We do not want you to take NSAIDs due to your low platelets, however it is important to use heat therapy and compression on the arm. Overall we are concerned for skin and soft tissue infection and we will be treating you with antibiotics. Return to the ER immediately if you develop chest pain, shortness of breath, fevers, worsening swelling or redness or any other concerns. Please use RICE therapy for your pain in addition to acetaminophen. Rest the painful area. Ice the area of pain/swelling for at least 15 minutes, 4x a day. Compress the area of swelling using a brace, wrap, or splint if applied. Elevate the painful or swollen extremity by supporting it above the level of the heart with pillows when sitting or laying. Please have a repeat right upper extremity venous peripheral ultrasound in 1 week. If you can not get this scheduled with your primary care doctor, please return to the ER. Please also discuss your lab work with the primary care doctor. Please follow up with your primary care doctor within the next 2-3 days for ER follow-up. (If you do not have a PCP you can call [phone]. ?to schedule an appointment with an [facility] Primary Care Provider) IF YOU DEVELOP ANY NEW OR WORSENING SYMPTOMS, RETURN TO THE ER! Please read the attached instructions, they highlight more specific treatments and interventions for you at home. Thank you for letting me participate in your care, Keely Cheng PA-C Prescriptions: New cephalexin 500 mg capsule 500 mg PO QID 7 Days Qty: 28 0RF No Action Ear Wax Removal Drops 6.5 % drops 3 drp EAR-RIGHT BID Qty: 15 0RF furosemide [Lasix] 20 mg tablet 20 mg PO DAILY Qty: 30 0RF Referrals: Osmany Frey MD [Primary Care Provider, Family Practice] Stand Alone Forms: Patient Portal/API
[2024-11-06 12:52] LABS: Add Manual Diff / Slide Review NO; Hematocrit 46.4 % (41-53); Hemoglobin 16.2 g/dL (13.5-17.5); Lymphocytes Absolute Auto 1000 /uL (1100-4500); Mean Corpuscular HGB Conc 35.0 % (30-36); Mean Corpuscular Hemoglobin 35.3 PG (26-34); Mean Corpuscular Volume 101.0 fL (80-100); Platelet Count 81 X10^3/uL (150-400)
[2024-11-06 12:59] LABS: INR 1.0 (0.9-1.3); Prothrombin Time 11.6 SECONDS (9.4-12.5)
[2024-11-06 13:02] LABS: Lactate (Lactic Acid) 1.8 mmol/L (0.7-2.1); PTT Partial Thromboplastin Tim 29 SECONDS (25.1-36.5)
[2024-11-06 13:06] LABS: Alanine Aminotransferase 34 IU/L (<50); Albumin 3.9 g/dL (3.5-5.0); Albumin Globulin Ratio 1.1 (1.0-2.8); Alkaline Phosphatase 67 U/L (38-126); Blood Urea Nitrogen 4 mg/dL (9-20); Calcium 8.8 mg/dL (8.4-10.2); Carbon Dioxide 22 mmol/L (22-32); Chloride 95 mmol/L (98-107); Estimated Glomerular Filt Rate > 60 mL/min (>60); Globulin 3.5 g/dL (1.7-4.1); Glucose 62 mg/dL (70-99); Potassium 4.5 mmol/L (3.4-5.1); Sodium 129 mmol/L (137-145); Total Protein 7.4 g/dL (6.3-8.2)
[2024-11-06 13:09] LABS: HEMOLYSIS 157 (0-50)
--- NOTE | 2024-11-06 13:20 | DI.RAD.S_ITS ---
PROCEDURE: XR FOREARM RT 2V INDICATIONS: R hand through elbow infection, swelling TECHNIQUE: 2 views of the forearm were acquired. COMPARISON: None. FINDINGS: Bones: No fractures or dislocations. No suspicious bony lesions. 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 Soft tissues: Soft tissue swelling of the right forearm without radiopaque retained foreign body or gas foci. IMPRESSION: Soft tissue edema of the forearm without radiographic osteomyelitis. High-stage SLAC wrist. Dictated by: Raúl Driscoll M.D. on 11/06/2024 at 14:30 Approved by: Raúl Driscoll M.D. on 11/06/2024 at 14:31
--- NOTE | 2024-11-06 13:20 | DI.RAD.S_ITS ---
PROCEDURE: XR HAND RT MIN 3V INDICATIONS: R hand through elbow infection, swelling TECHNIQUE: 3 views of the hand(s) acquired. COMPARISON: None. FINDINGS: Bones: No fractures or dislocations. 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 Soft tissues: No suspicious soft tissue calcifications. Soft tissue swelling of the right hand without radiopaque retained foreign body or gas foci. IMPRESSION: No radiographic osteomyelitis. Dictated by: Raúl Driscoll M.D. on 11/06/2024 at 14:31 Approved by: Raúl Driscoll M.D. on 11/06/2024 at 14:32
== END 2024-11-06 15:16 | disposition home or self-care (01) ==
PROVIDERS: Emergency Provider Physician Assistant; PCP Family Medicine
DX: L03.113 Cellulitis of right upper limb (principal); I82.611 Acute embolism and thrombosis of superficial veins of right upper extremity; D69.6 Thrombocytopenia, unspecified; Z87.891 Personal history of nicotine dependence
CPT/HCPCS: 36415; 73090; 73130; 80053; 83605; 85025; 85610; 85730; 86140; 93971; 99283; 99284

== ENCOUNTER 2024-11-12 11:05 | Emergency (ER) | payer MEDICARE, SELFPAY ==
[2024-11-12 11:12] VITALS: BP 110/66; PULSE 68; RESP 16; TEMP 36.4; O2SAT 98; BMI 24.3
--- NOTE | 2024-11-12 11:27 | DI.US.S_ITS ---
PROCEDURE: US PERIP VENOUS UP EXTREM RT INDICATIONS: repeat US, r/t poor circulation, discoloration, swelling TECHNIQUE: Real-time imaging, as well as color and pulse Doppler interrogation, was performed of the upper extremity deep veins from the inferior neck to the antecubital fossa. COMPARISON: [facility], [place], [facility] VENOUS UP EXTREM RT, 11/06/2024, 12:48. FINDINGS: The internal jugular vein, visualized portions of the subclavian vein, axillary, and brachial veins are free of intraluminal thrombus. Where physically possible, the veins are normally compressible. Color and pulse Doppler demonstrate normal intraluminal flow, with expected phasicity and pulsatility. Additional scanning of the cephalic and basilic veins of the superficial system demonstrates normal compressibility, without thrombus. IMPRESSION: No findings of upper extremity deep venous thrombosis can be seen. The previously seen superficial thrombus is not seen on these images. Dictated by: Jakob Ortega M.D. on 11/12/2024 at 11:21 Approved by: Jakob Ortega M.D. on 11/12/2024 at 11:22
--- NOTE | 2024-11-12 12:16 | ED.RECABL ---
HPI - Recheck/Abnormal Lab/Rx <Keely Cheng PA-C - Last Filed: 11/12/24 13:03> General Chief Complaint: Recheck/Abnormal Lab/Rx Stated Complaint: Sent to get US on upper right arm for blood clot Time Seen by Provider: 11/12/24 12:16 Source: patient Mode of arrival: Family Vehicle History of Present Illness HPI narrative: Mr. Batres is a very pleasant 64-year-old gentleman with a past medical history of hypertension, tobacco use, peripheral vascular disease, peripheral edema, who I saw in the ER on 11/06/2024 for right arm swelling and discoloration x6 days at that time, diagnosed with right upper extremity cellulitis in addition to a superficial venous thrombosis with a history of what appears to be chronic immune thrombocytopenic purpura, here today for 1 week repeat right upper extremity ultrasound that was recommended. Patient states he was unable to get a repeat ultrasound with his primary care doctor. States that he has completed his course of Keflex and the arm is no longer red or warm. The swelling has improved however he still does have some dark color change. Overall he has been feeling well over this last week. Denies any new symptoms, chest pain, shortness of breath, fevers, chills, numbness tingling weakness. Related Data Previous Rx's ?Medication ?Instructions ?Recorded carbamide peroxide 6.5 % ear drops 3 drp EAR-RIGHT BID #15 mL 01/13/22 (Ear Wax Removal Drops) furosemide 20 mg tablet (Lasix) 20 mg PO DAILY #30 tabs 03/13/23 cephalexin 500 mg capsule 500 mg PO QID 7 days #28 caps 11/06/24 Allergies Allergy/AdvReac Type Severity Reaction Status Date / Time blueberry Allergy Verified 11/12/24 11:17 Review of Systems <Keely Cheng PA-C - Last Filed: 11/12/24 13:03> Review of Systems ROS Unobtainable: All systems reviewed & are unremarkable except as noted in HPI and below Patient History <Keely Cheng PA-C - Last Filed: 11/12/24 13:03> tobacco type: cigarettes alcohol intake frequency: 0-2 drinks per day Exam <Keely Cheng PA-C - Last Filed: 11/12/24 13:03> Narrative Exam Narrative: GENERAL: 64 year old patient appears stated age. Well-developed patient, in no acute distress. HEAD: Atraumatic. Normocephalic. NECK: Trachea midline. Cervical ROM intact. CARDIOVASCULAR: Regular rate RESPIRATORY: ?Nonlabored respirations. ?Speaking in clear, full sentences. EXTREMITIES: Right upper extremity with darkened skin on dorsal aspect of hand and forearm and mild edema around the right wrist. He has 2+ radial pulses bilaterally and brisk capillary refill on all the fingertips bilaterally. No erythema or increased warmth. Edema has improved significantly since last week. NEURO: AOx3. ?Clear speech. ?Moves all 4 extremities appropriately. Initial Vital Signs Initial Vital Signs: Vital Signs Temperature 97.6 F 11/12/24 11:12 Pulse Rate 68 11/12/24 11:12 Respiratory Rate 16 11/12/24 11:12 Blood Pressure 110/66 11/12/24 11:12 Pulse Oximetry 98 11/12/24 11:12 Oxygen Delivery Method Room Air 11/12/24 11:12 <Vivek Bob MD - Last Filed: 11/12/24 14:09> Initial Vital Signs Initial Vital Signs: Vital Signs Temperature 97.6 F 11/12/24 11:12 Pulse Rate 68 11/12/24 11:12 Respiratory Rate 16 11/12/24 11:12 Blood Pressure 110/66 11/12/24 11:12 Pulse Oximetry 98 11/12/24 11:12 Oxygen Delivery Method Room Air 11/12/24 11:12 Course <Keely Cheng PA-C - Last Filed: 11/12/24 13:03> Orders Ordered: ED Orders 11/12/24 11:27 US periph venous up extrem rt Stat Vital Signs Vital signs: Vital Signs - 8 hr 11/12/24 11:12 11/12/24 13:06 Temperature 97.6 F Pulse Rate 68 69 Respiratory Rate 16 18 Blood Pressure 110/66 122/89 Pulse Oximetry 98 99 Oxygen Delivery Method Room Air Room Air <Vivek Bob MD - Last Filed: 11/12/24 14:09> Orders Ordered: ED Orders 11/12/24 11:27 periph venous up extrem rt Stat Vital Signs Vital signs: Vital Signs - 8 hr 11/12/24 11:12 11/12/24 13:06 Temperature 97.6 F Pulse Rate 68 69 Respiratory Rate 16 18 Blood Pressure 110/66 122/89 Pulse Oximetry 98 99 Oxygen Delivery Method Room Air Room Air MDM - Recheck/Abnormal Lab/Rx <Keely Cheng PA-C - Last Filed: 11/12/24 13:03> Medical Records Attestation: I reviewed the patient's medical records. Imaging Data RUE Venous US: Radiologist's Impression: PROCEDURE: US PERIPH VENOUS UP EXTREM RT INDICATIONS: repeat US, r/t poor circulation, discoloration, swelling TECHNIQUE: Real-time imaging, as well as color and pulse Doppler interrogation, was performed of the upper extremity deep veins from the inferior neck to the antecubital fossa. COMPARISON: [facility], US, US [facility] VENOUS UP EXTREM RT, 11/06/2024, 12:48. FINDINGS: The internal jugular vein, visualized portions of the subclavian vein, axillary, and brachial veins are free of intraluminal thrombus. Where physically possible, the veins are normally compressible. Color and pulse Doppler demonstrate normal intraluminal flow, with expected phasicity and pulsatility. Additional scanning of the cephalic and basilic veins of the superficial system demonstrates normal compressibility, without thrombus. IMPRESSION: No findings of upper extremity deep venous thrombosis can be seen. The previously seen superficial thrombus is not seen on these images. Dictated by: Jakob Ortega M.D. on 11/12/2024 at 11:21 Approved by: Jakob Ortega M.D. on 11/12/2024 at 11:22 [facility] [place] Narrative Medical decision making narrative: 64-year-old gentleman with a past medical history of hypertension, tobacco use, peripheral vascular disease, peripheral edema, who I saw in the ER on 11/06/2024 for right arm swelling and discoloration x6 days at that time, diagnosed with right upper extremity cellulitis in addition to a superficial venous thrombosis with a history of what appears to be chronic immune thrombocytopenic purpura, here today for 1 week repeat right upper extremity ultrasound that was recommended. Differential diagnosis includes but isn't limited to cellulitis, SVT, DVT PVD, etc. On exam patient is in no acute distress, nontoxic-appearing, all vital signs within normal limits. 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 The redness and warmth of his arm has completely resolved and the edema has improved significantly. He is neurovascularly intact with 2+ pulses bilaterally brisk cap refill. He does continue to have darkened skin on the dorsal aspect of the arm. Repeat ultrasound today reveals no findings of upper extremity DVT and the previously seen superficial thrombus is not seen. Recommended patient continue using compression in the right arm to help with residual edema, Robbin wrap was applied here. Advised to follow up with his PCP, continue with supportive care, return to the ER for any new or worsening symptoms which we discussed. Patient verbalized understanding of all information and is happy with the plan. He is neurovascularly intact and stable for discharge home, ER return precautions discussed. Discharge Plan Departure Patient Disposition: Home Clinical Impression: Encounter for wound re-check Instructions: DI for Cellulitis -- Adult, DI for Peripheral Edema-Unilateral Activity Restrictions/Additional Instructions: Dear Mr. Batres, Thank you for coming to the emergency department. Today you had your 1 week right upper extremity ultrasound repeated. The small superficial clot that we saw last week has resolved and is no longer there. Your arm is also no longer red and warm, it appears the infection has resolved. You do have some residual color change that will take some time to completely resolve. I would like you to continue using an Robbin wrap for compression of the arm, and elevating it. Please follow up with your primary care doctor. Return to the emergency department if you develop severe pain, increased redness, warmth of the arm, fevers, increased swelling, numbness tingling weakness or any other concerns. Please follow up with your primary care doctor within the next 2-3 days for ER follow-up. (If you do not have a PCP you can call [phone]. ?to schedule an appointment with an [facility] Primary Care Provider) IF YOU DEVELOP ANY NEW OR WORSENING SYMPTOMS, RETURN TO THE ER! Please read the attached instructions, they highlight more specific treatments and interventions for you at home. Thank you for letting me participate in your care, Keely Cheng PA-C Prescriptions: No Action Ear Wax Removal Drops 6.5 % drops 3 drp EAR-RIGHT BID Qty: 15 0RF furosemide [Lasix] 20 mg tablet 20 mg PO DAILY Qty: 30 0RF cephalexin 500 mg capsule 500 mg PO QID 7 Days Qty: 28 0RF Referrals: Osmany Frey MD [Primary Care Provider, Family Practice] Stand Alone Forms: Patient Portal/API ED Sign-out <Vivek Bob MD - Last Filed: 11/12/24 14:09> Cosign ED Attending Cosignature Attestation: I was immediately available in the department for consultation. ?This documentation has been reviewed and I agree with assessment and plan. Supervised by Vivek Bob MD
[2024-11-12 13:06] VITALS: BP 122/89; PULSE 69; RESP 18; O2SAT 99
== END 2024-11-12 13:07 | disposition home or self-care (01) ==
PROVIDERS: Emergency Provider Physician Assistant; PCP Family Medicine
DX: R60.9 Edema, unspecified (principal); L03.113 Cellulitis of right upper limb
CPT/HCPCS: 93971; 99281; 99283